=== PATIENT | male | born 1950 | race Hispanic/Latino ===

== ENCOUNTER 2021-02-12 08:03 | Day surgery (SDC) | payer MEDICARE ==
[2021-02-06 15:16] LABS: BASOPHILS % (AUTO) 0.7 % (0.0-5.0); HEMATOCRIT 48.6 % (42-54); LYMPHOCYTES % (AUTO) 16.2 % (21.0-51.0); MEAN CORPUSCULAR HEMOGLOBIN 29.5 pg (27.0-33.0); MEAN CORPUSCULAR VOLUME 86.9 fL (79-99); MONOCYTES % (AUTO) 7.5 % (3.0-13.0); PLATELET COUNT (AUTO) 312 K/uL (130-400); RED BLOOD CELL COUNT(AUTO) 5.59 MIL/uL (4.50-6.20); RED CELL DISTRIBUTION WIDTH 13.2 % (11.0-15.5); WHITE BLOOD COUNT (AUTO) 13.1 K/uL (4.8-10.8)
[2021-02-06 15:24] LABS: APPEARANCE,URINE Clear (CLEAR); BILIRUBIN,URINE Negative (NEGATIVE); COLOR,URINE Yellow (YELLOW); GLUCOSE, URINE (UA) Negative (NEGATIVE); KETONES,URINE Negative (NEGATIVE); LEUKOCYTE ESTERASE ,URINE Trace (NEGATIVE); NITRATE,URINE Negative (NEGATIVE); OCCULT BLOOD,URINE Trace (NEGATIVE); PROTEIN,URINE 300 mg/dL (NEGATIVE)
[2021-02-06 15:30] LABS: CREATININE 1.8 mg/dL (0.5-1.5); POTASSIUM 4.9 mmol/L (3.5-5.1)
[2021-02-06 15:30] LABS: RBC,URINE 0-1 /HPF (0-1)
[2021-02-06 15:31] LABS: BACTERIA,URINE Few /HPF (None Seen); SQUAMOUS EPITHELIAL CELL,UR Few /HPF (0-2)
[2021-02-06 15:32] LABS: INR 1.13 (0.85-1.15); PROTHROMBIN TIME 12.2 SEC (9.6-11.6)
[2021-02-06 15:34] LABS: PARTIAL THROMBOPLASTIN TIME 28.2 SEC (26.3-35.5)
[2021-02-08 11:00] VITALS: BP 136/63
[2021-02-12] VITALS (17 sets, daily range): BP systolic 141–205; BP diastolic 56–97
[~2021-02-12] VITALS: Ht 167.6 cm; Wt 116.7 kg
[2021-02-12] MEDS: CEFTRIAXONE SODIUM 1 GM IVP SCH ×2 (06:00→11:50)
[~2021-02-12 08:03] MED LIST: ACET650T9 PO; ASPI-1197 PO; ATOR40TA71 PO; EMPA25TA PO; ESCI-8 PO; GENTAMICIN 80 MG/NS 100 ML PB 100 ML IV SCH; LEVO500T89 PO; LISI40TA9 PO; METF-446 PO; TAMS-1 PO
[2021-02-12] MEDS ORDERED: SODIUM CHLORIDE 0.9% 1000ML 1,000 ML IV ONE (09:05)
[2021-02-12] MEDS ORDERED: LIDOCAINE PF 2% 5ML ABBOJECT ONE (11:34)
[2021-02-12] MEDS ORDERED: ONDANSETRON HCL 4 MG/2 ML VIAL ONE (11:35)
[2021-02-12] MEDS ORDERED: ROCURONIUM 10MG/1ML SYR 10 MG/ML ML ONE (11:35)
[2021-02-12] MEDS ORDERED: MIDAZOLAM HCL 1 MG/ML 2ML VIAL ONE (11:35)
[2021-02-12] MEDS ORDERED: PROPOFOL 10 MG/ML 20ML VIAL IV ONE (11:35)
[2021-02-12] MEDS ORDERED: FENTANYL CITRATE PF 50 MCG/1 ML 2ML VIAL ONE ×2 (11:36→12:23)
[2021-02-12] MEDS ORDERED: EPHEDRINE SULFATE 50 MG/ML AMPULE ONE (11:55)
[2021-02-12] MEDS ORDERED: SUCCINYLCHOLINE 200MG/10ML SYR ONE (12:24)
[2021-02-12] MEDS ORDERED: GLYCOPYRROLATE 1 MG/5 ML SYRINGE ONE (12:30)
[2021-02-12] MEDS ORDERED: NEOSTIGMINE 5MG/5ML SYR IV ONE (12:30)
[2021-02-12] MEDS ORDERED: ESMOLOL HCL 10 MG/ML 10 ML VIAL ONE (12:45)
== END 2021-02-12 15:30 | disposition home or self-care (01) ==
LOC: DAH 08:03
PROVIDERS: ATTEND Urology
DX: D29.1 Benign neoplasm of prostate (principal); Z20.822 Contact with and (suspected) exposure to COVID-19; I25.10 Atherosclerotic heart disease of native coronary artery without angina pectoris; I10 Essential (primary) hypertension; I25.2 Old myocardial infarction; M19.90 Unspecified osteoarthritis, unspecified site; E11.9 Type 2 diabetes mellitus without complications; I45.10 Unspecified right bundle-branch block; Z95.1 Presence of aortocoronary bypass graft; Z90.49 Acquired absence of other specified parts of digestive tract; Z79.899 Other long term (current) drug therapy; Z79.84 Long term (current) use of oral hypoglycemic drugs; Z79.82 Long term (current) use of aspirin; Z79.01 Long term (current) use of anticoagulants
CPT/HCPCS: 36415; 52648; 71045; 80048; 81001; 82948 ×2; 85025; 85610; 85730; 87077; 87088; 87186; 93005; A4215; A4221; A4222; A4223 ×2; A4354; A4358; A4600; A4657; A4663; A6260; C1758; C9803; J0330; J0696; J1580; J2001; J2250; J2405; J2704; J2710; J3010 ×2; J3490 ×3; J7030; U0003; 96365

== ENCOUNTER 2021-02-14 06:15 | Emergency (ER) | payer MEDICARE ==
[~2021-02-14 06:15] MED LIST changes: -GENTAMICIN 80 MG/NS 100 ML PB 100 ML IV SCH
== END 2021-02-14 07:47 | disposition home or self-care (01) ==
LOC: EDH 06:15
DX: T83.098A Other mechanical complication of other urinary catheter, initial encounter (principal); R11.0 Nausea; Z72.0 Tobacco use
CPT/HCPCS: 51700